=== PATIENT | male | born 1990 | race Caucasian/White ===

== ENCOUNTER 2023-12-22 15:50 | Emergency (ER) | payer BC ==
[2023-12-22] MEDS: methylPREDNISolone Sodium Succinate 125 MG/2 ML SDV IM ONE (16:06)
[2023-12-22] MEDS: predniSONE 20 MG Tab PO ONE (16:49)
[2023-12-22] MEDS: diphenhydrAMINE 50 MG Cap PO ONE (16:49)
[2023-12-22] MEDS: diphenhydrAMINE 50 MG Cap ONE (16:58)
[2023-12-22] MEDS: predniSONE 20 MG Tab ONE (16:58)
[2023-12-22] MEDS: Hydrocortisone 2.5% Crm 30 GM Tube TOP ONE (16:58)
[2023-12-22] MEDS: Hydrocortisone 1% Crm 30 GM Tube TOP ONE (16:58)
[2023-12-22] MEDS: Hydrocortisone Acetate 1% Crm 30 GM Tube TOP PRN (17:00)
== END 2023-12-22 17:22 | disposition home or self-care (01) ==
LOC: LB.ED 15:50
DX: L23.7 Allergic contact dermatitis due to plants, except food (principal); I10 Essential (primary) hypertension; Z88.0 Allergy status to penicillin
CPT/HCPCS: 96372; 99283; A9270; J2919; J7512